=== PATIENT | female | born 1995 | race Caucasian/White ===

== ENCOUNTER 2021-07-18 16:59 | Observation (INO) | payer BC ==
[~2021-07-18] VITALS: Ht 157.5 cm; Wt 106.6 kg
[2021-07-18] MEDS ORDERED: LEVO75TA7 PO (17:23)
[2021-07-18] MEDS ORDERED: ACETAMINOPHEN 500MG TABLET PO PRN (19:15)
== END 2021-07-18 21:13 | disposition left against medical advice (07) ==
LOC: 8EST NSY 16:59 → 8 EST A/PP 17:21
PROVIDERS: ADMIT Obstetrics & Gynecology; ATTEND Obstetrics & Gynecology
DX: O99.891 Other specified diseases and conditions complicating pregnancy (principal); M54.9 Dorsalgia, unspecified; O26.892 Other specified pregnancy related conditions, second trimester; R10.9 Unspecified abdominal pain; Z3A.27 27 weeks gestation of pregnancy
CPT/HCPCS: 59025; 76805; 76818; G0378; 99281; G0379